=== PATIENT | female | born 1990 | race Asian ===

== ENCOUNTER → 2025-01-02 10:15 | Outpatient (REF) | payer OTHER, SELFPAY | LOC: WDC 10:15 | PROVIDERS: ATTENDING PHYSICIAN Internal Medicine | DX: N63.31 Unspecified lump in axillary tail of the right breast (principal); R22.31 Localized swelling, mass and lump, right upper limb | CPT/HCPCS: 76642; 77062; 77066 ==

== ENCOUNTER → 2025-04-10 14:18 | Outpatient (REF) | payer OTHER, SELFPAY | LOC: WDC 14:18 | PROVIDERS: ATTENDING PHYSICIAN Family Medicine | DX: R92.8 Other abnormal and inconclusive findings on diagnostic imaging of breast (principal) | CPT/HCPCS: 76642 ==